=== PATIENT | female | born 1955 | race Caucasian/White ===

== ENCOUNTER → 2020-07-04 14:55 | Outpatient (CLI) | payer OTHER, SELFPAY ==
--- NOTE | ~2020-07-04 | US_ITS ---
EXAMINATION: US transvaginal DATE: 07/04/2020 15:20 INDICATION: Left vaginal wall cyst Comparison:No prior studies for comparison. TECHNIQUE: Multiple endovaginal sonographic images of the pelvis performed. FINDINGS: The uterus measures 8.6 x 3.4 x 5.4 cm. There is a myometrial mass measuring 2.3 cm anterio r aspect of the uterus, consistent with fibroid. There are nabothian cysts. The endometrial complex m easures 8 mm. The ovaries are not visualized. There is no free fluid in the pelvis. There are no abnormal masses seen on either side. IMPRESSION: 1. Uterine fibroid measuring 2.3 cm. Reviewed, dictated and finalized at location B.
== END ==
PROVIDERS: Visit Provider Nurse Practitioner
DX: N89.8 Other specified noninflammatory disorders of vagina (principal); D25.9 Leiomyoma of uterus, unspecified
CPT/HCPCS: 76830

== ENCOUNTER → 2020-08-06 10:54 | Outpatient (CLI) | payer OTHER, SELFPAY ==
--- NOTE | ~2020-08-06 | DEXA_ITS ---
Bone Density Report Name: Amparo Brock Age: 65 Sex: Female Ethnicity: White Date of : 1955 Indication: postmenopausal; screening for osteoporosis; cancer; Referring Provider: Nissa, Anastasiia Study: Bone densitometry was performed. Exam Date: August 06, 2020 Accession number: [id number] Bone Density: Region BMD T-score Z-score Classification AP Spine (L1-L4) 1.062 0.1 1.8 Normal Femoral Neck (Left) 0.776 -0.7 0.8 Normal Total Hip (Left) 0.836 -0.9 0.2 Normal Femoral Neck (Right) 0.928 0.7 2.1 Normal Total Hip (Right) 0.800 -1.2 -0.1 Osteopenia Total Hip Mean 0.818 -1.1 0.1 Osteopenia World Health Organization criteria for BMD impression classify patients as: Normal (T-score at or above -1.0), Osteopenia (T-score between -1.0 and -2.5), or Osteoporosis (T-score at or below -2.5). 10-year Fracture Risk(1): Major Osteoporotic Fracture 7.3% Hip Fracture 0.4% Reported Risk Factors: [place] (), Neck BMD=0.776, BMI=25.7 (1) FRAX(R) Version 3.08. Fracture probability calculated for an untreated patient. Fracture probability may be lower if the patient has received treatment. Clinical Information Provided by Patient: Has used the following medications: Vitamin D, tomoxifen Has the following medical conditions: Cancer Patient maximum height was 62.5 Menopause Age: 52 Does not regularly consume dairy products Drinks caffeinated beverages Onset of menses at age 14 Number of children 2 Impression: The patient has low bone mass, based on the Right Total Hip T-score. The patient has an estimated ten-year risk of hip fracture of 0.4% and an estimated ten-year risk of major fracture of 7.3%, based on the WHO FRAX algorithm. Discussion: BONE DENSITY IS LOW AT ONE OR MORE SKELETAL SITES. This patient's lowest T-score is low at one or more skeletal sites. It meets the World Health Organization's (WHO) criteria for ?low bone mass? (T-score between -1.0 and -2.5). The patient's 10-year risk of fracture as calculated by FRAX is less than the threshold where pharmacological therapy is recommended by the National Osteoporosis Foundation (NOF). However, all treatment decisions require clinical judgment and consideration of individual patient factors, including patient preferences, comorbidities, previous drug use, risk factors not captured in the FRAX model (e.g., frailty, falls, vitamin D deficiency, increased bone turnover, interval significant decline in bone density) and possible under or overestimation of fracture risk by FRAX. The patient should follow a healthful lifestyle (good nutrition with adequate calcium and vitamin D, and appropriate weight-bearing exercise). Follow-Up: Consider repeating this study in 2 to 3 years to reassess this patient's status, or sooner if there is some
== END ==
PROVIDERS: Visit Provider Nurse Practitioner
DX: Z13.820 Encounter for screening for osteoporosis (principal); Z78.0 Asymptomatic menopausal state; M85.851 Other specified disorders of bone density and structure, right thigh
CPT/HCPCS: 77080

== ENCOUNTER → 2022-11-02 13:33 | Outpatient (CLI) | payer MEDICARE, SELFPAY ==
--- NOTE | ~2022-11-02 | XR_ITS ---
EXAM: XR knee RT 3V DATE: 11/02/2022 13:51 HISTORY: M25.561 - Pain in right knee . COMPARISON: None available. FINDINGS: Normal mineralization. No fracture or dislocation. No lytic or blastic lesion. Mild medial joint space narrowing. Mild tricompartmental osteophytosis. Quadriceps enthesopathy. No erosion or p eriosteal change. Soft tissue swelling anterior to the patellar tendon. Small volume right knee joint effusion IMPRESSION: Mild tricompartmental right knee osteoarthritis. Anterior soft tissue swelling, correlate for clinical findings of hematoma, bursitis, or infection. Reviewed, dictated and finalized at location K. IMPRESSION: Mild tricompartmental right knee osteoarthritis. Anterior soft tiss ue swelling, correlate for clinical findings of hematoma, bursitis, or infectio n.
== END ==
PROVIDERS: PCP Internal Medicine; Visit Provider Internal Medicine
DX: M17.11 Unilateral primary osteoarthritis, right knee (principal)
CPT/HCPCS: 73562

== ENCOUNTER 2022-11-02 18:36 | Emergency (ER) | payer MEDICARE, SELFPAY ==
[2022-11-02 18:59] VITALS: BP 144/72; PULSE 75; RESP 16; TEMP 37; O2SAT 99
[2022-11-02 19:02] VITALS: BP 144/72; PULSE 75; RESP 16; TEMP 37; O2SAT 99
--- NOTE | 2022-11-02 19:44 | ED.GENADULT ---
HPI - General Adult General Chief complaint: Extremity Injury, Lower Stated complaint: Right Knee Pain Source: patient Mode of arrival: ambulatory Limitations: no limitations History of Present Illness HPI narrative: Patient presents for evaluation of right knee pain for the last 2 days. She cannot identify any precipitating injury. She was working on her hands and knees cleaning her pool prior to the time of symptom onset. She now reports redness to the anterior aspect of the right knee with some warmth. She has full range of motion denies any paresthesias. She rates her pain 8/10 severity. No radicular component. No fever, chills, nausea, vomiting. She is not diabetic. She does not smoke. She took 400 mg of ibuprofen without considerable improvement in her pain thereafter. No drainage from the affected area. She contacted her doctor who ordered an x-ray of her right knee earlier today. Related Data Home Medications Medication Instructions Recorded Confirmed carvedilol 3.125 mg tablet 3.125 mg PO DAILY 04/06/19 11/02/22 pantoprazole 20 mg tablet,delayed 20 mg PO QAM 04/06/19 11/02/22 release rosuvastatin 10 mg tablet 10 mg PO DAILY 04/06/19 11/02/22 Allergies Allergy/AdvReac Type Severity Reaction Status Date / Time Penicillins Allergy Mild rash Verified 11/02/22 19:01 Review of Systems Review of Systems: CONSTITUTIONAL: Denies fever, chills, or sweats. EYES: Denies visual changes, redness, or discharge. ENT: Denies rhinorrhea, congestion, sore throat, or otalgia. CARDIOVASCULAR: Denies chest pain, palpitations, or edema. RESPIRATORY: Denies cough or dyspnea. GASTROINTESTINAL: Denies abdominal pain, nausea, vomiting, or diarrhea. GENITOURINARY: Denies dysuria or hematuria. SKIN: reports redness and warmth to the right knee. MUSCULOSKELETAL: Reports right knee pain and swelling. Denies back pain NEUROLOGIC: Denies headache, numbness, dizziness, or weakness. PSYCHIATRIC: Denies anxiety or depression. [facility] Past Medical History Medical History Breast cancer Bursitis GERD (gastroesophageal reflux disease) Hyperlipidemia Hypertension Surgical History Surgical History History of lumpectomy Family History Family History Mother Hypertension Family history of elevated blood lipids Sibling Hypertension Social History Social History Smoking status: Never smoker Second hand tobacco smoke exposure: No Alcohol intake: never Lack of Transportation: No Lack of Food: Never True Current Housing: I Have Housing Concerned About Future Housing: No Difficulty Paying Gas/Electric Bills: No Difficulty Paying for Meds: No Currently Unemployed: YES Education: Associate Degree Difficulty w/ Childcare or Family Care: No Exam Narrative: GENERAL: WELL-APPEARING, WELL-NOURISHED, AND IN NO ACUTE DISTRESS. HEAD: NORMOCEPHALIC, ATRAUMATIC. EYES: PERRLA AND EOMI. ENT: NARES CLEAR, NO RHINORRHEA OR EPISTAXIS. MUCOUS MEMBRANES MOIST. OROPHARYNX WITHOUT TONSILLAR HYPERTROPHY EXUDATE OR OTHER LESIONS. BILATERAL TMS PEARLY ROSAS NONBULGING NECK: SUPPLE. NO ADENOPATHY OR MASSES. NO CAROTID BRUITS OR JVD CHEST: CLEAR TO AUSCULTATION. NO RESPIRATORY DISTRESS. NO WHEEZES RALES OR RHONCHI HEART: REGULAR RATE AND RHYTHM. NO MURMUR HEARD. NORMAL PERIPHERAL PULSES. ABDOMEN: SOFT, NONTENDER, NONDISTENDED, NORMAL ACTIVE BOWEL SOUNDS. EXTREMITIES: THERE IS SWELLING NOTED TO THE ANTERIOR ASPECT OF THE RIGHT KNEE. FULL RANGE OF MOTION OF THE RIGHT KNEE WITHOUT CREPITUS OR DEFORMITY. THERE IS TENDERNESS NOTED TO THE ANTERIOR ASPECT OF THE RIGHT KNEE. SKIN: THERE IS ERYTHEMA AND WARMTH TO THE ANTERIOR ASPECT OF THE RIGHT KNEE. NEURO: NO FOCAL DEFICITS. KRYSTAL
== END 2022-11-02 20:00 | disposition home or self-care (01) ==
PROVIDERS: Emergency Provider Nurse Practitioner; PCP Internal Medicine
DX: M71.562 Other bursitis, not elsewhere classified, left knee (principal); K21.9 Gastro-esophageal reflux disease without esophagitis; E78.5 Hyperlipidemia, unspecified
CPT/HCPCS: 99213; G0463

== ENCOUNTER 2024-01-17 02:59 | Day surgery (SDC) | payer MEDICARE, SELFPAY ==
[2024-01-05 13:38] VITALS: BMI 22.0
[2024-01-17] MEDS: LACTATED RINGERS 1,000 ML 150 ML IV CONT (08:36)
[2024-01-17 08:38] VITALS: BP 147/73; PULSE 74; RESP 18; TEMP 36.4; O2SAT 100
--- NOTE | 2024-01-17 09:25 | WPDANESEPPF ---
Anes - Initial Pre Proc Eval Procedure: Operation Date: 01/17/24 09:30 Proposed Procedures p Screening Colonoscopy - Manolo Curtis MD Date/Time: 01/17/24 09:25 Surgeon: Manolo Curtis MD Pre Op Diagnosis: neoplasm screening Patient Data Age: 68 Gender: F Height: 1.6 m Weight: 56.1 kg Last Vital Signs Temp 97.6 F 01/17/24 08:38 Pulse 74 01/17/24 08:38 Resp 18 01/17/24 08:38 BP 147/73 H 01/17/24 08:38 Pulse Ox 100 01/17/24 08:38 O2 Del Method Room Air 01/17/24 08:38 Allergies Allergy/AdvReac Type Severity Reaction Status Date / Time Penicillins Allergy Mild rash Verified 01/17/24 08:28 Home Medications Medication Instructions Recorded Confirmed Type carvedilol 3.125 mg tablet 3.125 mg PO DAILY 04/06/19 01/17/24 History pantoprazole 20 mg tablet,delayed 20 mg PO QAM 04/06/19 01/17/24 History release rosuvastatin 10 mg tablet 10 mg PO DAILY 04/06/19 01/17/24 History lisinopril 20 mg tablet 20 mg PO DAILY #90 tabs 08/10/22 01/17/24 Rx montelukast 10 mg tablet 10 mg PO DAILY #90 tabs 01/11/23 01/17/24 Rx Patient hx anesthesia problems: none Family hx anesthesia problems: none Results Review: All pre-operative results and documents have been reviewed as part of the pre-operative evaluation. [facility] Past Medical History Medical History (Updated 01/17/24 @ 09:26 by Marily Rodríguez CRNA) Breast cancer left breast lumpectomy with lymph node biopsy Bursitis GERD (gastroesophageal reflux disease) Hyperlipidemia Hypertension Surgical History Surgical History History of lumpectomy Family History Family History Mother Hypertension Family history of elevated blood lipids Sibling Hypertension Social History Social History Smoking status: Never smoker Second hand tobacco smoke exposure: No Alcohol intake: current Alcohol use details: once every few months per patient Substance use: never Lack of Transportation: No Lack of Food: Never True Current Housing: I Have Housing Concerned About Future Housing: No Difficulty Paying Gas/Electric Bills: No Difficulty Paying for Meds: No Currently Unemployed: YES Education: Associate Degree Difficulty w/ Childcare or Family Care: No Living arrangements: alone Spiritual care concerns: No Anes - Eval Final PreProcedure Day of Procedure 01/17/24 09:25 Patient weight: normal Heart: regular rate and rhythm Lungs: clear to auscultation Airway: Mallampati scale class II Neurological: alert and oriented Last oral intake: >/= 8 hours ASA classification: II Emergent: no Anesthetic plan: proceed Anesthesia type and monitoring: general GIVS Results Review: All pre-operative results and documents have been reviewed as part of the pre-operative evaluation. Informed Consent: The patient's anesthetic plan and its attendant risks and benefits were discussed with the patient/family/POA. Questions were solicited and answers provided to the satisfaction of the patient/family/POA.
--- NOTE | 2024-01-17 09:36 | PM.HPGS ---
History of Present Illness History of Present Illness Consent: Risks, benefits, and alternatives have been discussed and questions answered. Patient agrees to proceed with procedure. Chief complaint: neoplasm screening Narrative: Amparo Brock is a 68 year old female here for screening colonoscopy, last one 2013 Review of Systems Review of Systems: All systems reviewed & are unremarkable except as noted in HPI and below PMFSH Past Medical History Medical History (Updated 01/17/24 @ 09:37 by Manolo Curtis MD) Breast cancer left breast lumpectomy with lymph node biopsy Bursitis Colon cancer screening GERD (gastroesophageal reflux disease) Hyperlipidemia Hypertension Surgical History Surgical History History of lumpectomy Family History Family History Mother Hypertension Family history of elevated blood lipids Sibling Hypertension Social History Social History Smoking status: Never smoker Second hand tobacco smoke exposure: No Alcohol intake: current Alcohol use details: once every few months per patient Substance use: never Lack of Transportation: No Lack of Food: Never True Current Housing: I Have Housing Concerned About Future Housing: No Difficulty Paying Gas/Electric Bills: No Difficulty Paying for Meds: No Currently Unemployed: YES Education: Associate Degree Difficulty w/ Childcare or Family Care: No Living arrangements: alone Spiritual care concerns: No Meds Home Medications and Allergies Home Medications Medication Instructions Recorded Confirmed Type carvedilol 3.125 mg tablet 3.125 mg PO DAILY 04/06/19 01/17/24 History pantoprazole 20 mg tablet,delayed 20 mg PO QAM 04/06/19 01/17/24 History release rosuvastatin 10 mg tablet 10 mg PO DAILY 04/06/19 01/17/24 History lisinopril 20 mg tablet 20 mg PO DAILY #90 tabs 08/10/22 01/17/24 Rx montelukast 10 mg tablet 10 mg PO DAILY #90 tabs 01/11/23 01/17/24 Rx Allergies Allergy/AdvReac Type Severity Reaction Status Date / Time Penicillins Allergy Mild rash Verified 01/17/24 08:28 Vital Signs Vital Signs - 24 hr 01/17/24 08:38 Temperature 97.6 F Pulse Rate 74 Respiratory Rate 18 Blood Pressure 147/73 H Pulse Oximetry 100 Oxygen Delivery Room Air Exam Const: General: comfortable and no acute distress HENMT: Face/Nose/Sinus: Normal nares present Eyes: General: appearance normal, both eyes and all related structures Neck: Neck: no JVD Resp: Auscultation: clear to auscultation bilaterally Cardio: Rate: regular rate Rhythm: regular rhythm GI: Inspection: non-distended GI Palp: Yes Soft to palpation Skin: General skin exam: normal color Neuro: General: gait normal Speech: normal speech Extrem: General: normal to inspection Psych: Mental Status: mental status grossly normal Assessment and Plan Assessment and plan (1) Colon cancer screening: Code(s): Z12.11 - Encounter for screening for malignant neoplasm of colon Status: Acute Assessment and Plan: colonoscopy
[2024-01-17 09:58] VITALS: BP 99/48; PULSE 74; RESP 18; O2SAT 100
[2024-01-17 10:08] VITALS: BP 116/74; PULSE 73; RESP 20; O2SAT 100
[2024-01-17 10:18] VITALS: BP 127/96; PULSE 76; RESP 20; O2SAT 100
== END 2024-01-17 10:30 | disposition home or self-care (01) ==
PROVIDERS: PCP Internal Medicine; Referring Provider Nurse Practitioner; Visit Provider Internal Medicine Gastroenterology
PROC: 0DJD8ZZ Inspection of Lower Intestinal Tract, Via Natural or Artificial Opening Endoscopic (ICD-10-PCS; CPT 45378; principal; 2024-01-17 09:30)
DX: Z12.11 Encounter for screening for malignant neoplasm of colon (principal); D12.3 Benign neoplasm of transverse colon; K57.30 Diverticulosis of large intestine without perforation or abscess without bleeding; K64.8 Other hemorrhoids; I10 Essential (primary) hypertension; E78.5 Hyperlipidemia, unspecified; K21.9 Gastro-esophageal reflux disease without esophagitis; Z85.3 Personal history of malignant neoplasm of breast
CPT/HCPCS: 45385; 88305; J2003; J2704; J7120

== ENCOUNTER 2024-07-03 13:53 | Outpatient (CLI) | payer MEDICARE, SELFPAY ==
--- NOTE | ~2024-07-03 | XR_ITS ---
PA, oblique, and lateral views of the right fourth finger CLINICAL HISTORY: Sprain FINDINGS: No acute fracture or dislocation seen. Joint spaces are intact. Soft tissues are unremarkab le. IMPRESSION: No significant abnormality seen. Reviewed, dictated and finalized at location .
--- OUTSIDE RECORDS SUMMARY | 2024-07-03 15:13 | XMS_ITS | Encounter Summary ---
Author Organization [facility] Address 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 Gender Identity Not on file Sexual Orientation Not on file documented as of this encounter Plan of Treatment Upcoming Encounters Date Type Department Care Team (Late st Contact Info) Description 07/17/2024 7:30 AM CDT Appointment [facility] [place] [address] [place] [address] Nola Delgado MD [address] [place] [address] 11/08/2024 10:30 AM CDT Office Visit [facility] Oncology and Hematology [facility] [address] [place] [address] Nola Delgado MD [address] [place] [address] documented as of this encounter Visit Diagnoses Diagnosis Other screening mammogram- Primary documented in this encounter Care Teams Nitrating Acid Mixer Relationship Specialty Start Date End Date Tal Mock DO [address] [facility] [address] [place] [address] PCP - General Internal Medicine 10/11/11 documented as of this encounter
--- OUTSIDE RECORDS SUMMARY | 2024-07-03 15:13 | XMS_ITS | Encounter Summary ---
Author Organization [facility] Address 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 Oncology and Hematology [facility] [address] [place] [address] Nola Delgado MD [address] [place] [address] documented as of this encounter Procedures Procedure Name Priority Date/Time Associated Diagnosis Comments MAMMO SCREEN BILAT W OR WO CAD Routine 05/21/2008 3:51 PM CDT documented in this encounter Results * MAMMO DIGITAL SCREEN BILAT (05/21/2008 3:51 PM CDT) Anatomical Region Laterality Modality Breast Bilateral Other 05/21/2008 3:51 PM CDT Narrative 05/22/2008 11:27 AM CDT [facility] [address] [place], [place] [address] Admit Date: 05/21/2008 ALEXANDRU MALHOTRA Sex: F Admit Prov: MICHELE BALDERAS Alexandre Date: 1955 Primary Care Prov: PCP, NONE CMRN: [id number] [id number] IM[facility] Ordering Prov: MICHELE BALDERAS Accession Number: [id number] Interpretation BILATERAL FULL FIELD DIGITAL SCREENING MAMMOGRAM WITH CAD. Date: 05/21/2008 History: Routine Screening. Technique: Full field digital craniocaudal and mediolateral oblique projections of both breasts were obtained. Computer aided detection was performed. Comparison: February 2006 and April 2003. Breast Parenchymal Composition: Heterogeneously dense, which lowers the sensitivity of mammography. Findings: No suspicious mass, suspicious microcalcifications, or architectural distortion in either breast is identified. Since the prior study, there has been no significant interval change. The computer aided detection system detects no significant abnormality. Overall Assessment: BI-RADS category 1: Negative. Recommendation: Annual mammography is recommended. Assessment BIRADS: 1-Negative Recommendation: Normal interval follow-up Dictated by: LYNDA CONNELL Electronically signed by: LYNDA CONNELL 05/22/2008 11:26 Transcribed: 05/22/2008 09:15 SDJ Procedure Note Lynda Connell - 05/22/2008 [facility] [address] [place], [place] [address] Admit Date: 05/21/2008 BLADECASE WALKERGIGI Ordonez Sex: F Admit Prov: MICHELE BALDERAS Date: 1955 Primary Care Prov: PCP, NONE CMRN: [id number] Room: [facility] SSN: [address] [place] [address] IMAGING SERVICES Ordering Prov: MICHELE BALDERAS Interpretation BILATERAL FULL FIELD DIGITAL SCREENING MAMMOGRAM WITH CAD. Date: 05/21/2008 History: Routine Screening. Technique: Full field digital craniocaudal and mediolateral oblique projections of both breasts were obtained. Computer aided detectionwas performed. Comparison: February 2006 and April 2003. Breast Parenchymal Composition: Heterogeneously dense, which lowersthe sensitivity of mammography. Findings: No suspicious mass, suspicious microcalcifications, or architectural distortion in either breast is identified. Since theprior study, there has been no significant interval change. The computeraided detection system detects no significant abnormality. Overall Assessment: BI-RADS category 1: Negative. Recommendation: Annual mammography is recommended. Assessment BIRADS: 1-Negative Recommendation: Normal interval follow-up Dictated by: LYNDA CONNELL Electronically signed by: LYNDA CONNELL 05/22/2008 11:26 Transcribed: 05/22/2008 09:15 SDJ Michele Balderas MD MAMMO ORDERABLES Final Result documented in this encounter Visit Diagnoses Diagnosis Other screening mammogram documented in this encounter Care Teams Dispatcher Service Relationship Specialty Start Date End Date Tal Mock DO [address] [address] PCP - General Internal Medicine 10/11/11 documented as of this encounter
--- OUTSIDE RECORDS SUMMARY | 2024-07-03 15:13 | XMS_ITS | Encounter Summary ---
Author Organization [facility] Address [address] [place] [address] Care Team Providers Care Personal Care Home Administrator Name Role Phone Tal Mock DO Primary Care Provider [phone] Encounter Details Date Type Department Care Team (Latest Contact Info) Description 04/17/2003 Outpatient Historical [facility] Jonathon Landry MD [address] [place] [address] SCREENING MAMM-MAILG NEOPL-OTHER (Primary Dx) Social History Tobacco Use Types Packs/Day Years Used Date Smoking Tobacco: Never Assessed Comments Unknown Sex and Gender Information Value Date Recorded Sex Assigned at Not on file 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 Gender Identity Not on file Sexual Orientation Not on file documented as of this encounter Plan of Treatment Upcoming Encounters Date Type Department Care Team (Late st Contact Info) Description 07/17/2024 7:30 AM CDT Appointment [facility] Medical [place] A [address] [place] [address] Nola Delgado MD [address] [place] [address] 11/08/2024 10:30 AM CDT Office Visit [facility] Oncology and Hematology [facility] [address] [place] [address] Nola Delgado MD [address] [place] [address] documented as of this encounter Visit Diagnoses Diagnosis Other screening mammogram- Primary documented in this encounter Care Teams Personal Care Home Administrator Relationship Specialty Start Date End Date Tal Mock DO [address] [facility] [address] [place] [address] PCP - General Internal Medicine 10/11/11 documented as of this encounter
--- OUTSIDE RECORDS SUMMARY | 2024-07-03 15:13 | XMS_ITS | Clinical Summary ---
Author Organization [facility] Address [address] [place] [address] Phone Care Team Providers Care String Cutter Name Role Phone Tal Mock DO Primary Care Provider [phone] Allergies Active Allergy Reactions Criticality Noted Date Comments Penicillins Rash Low 10/11/2011 Medications lisinopril (PRINIVIL) 20 mg tablet Take 20 mg by mouth daily. Active carvedilol (COREG) 3.125 mg tablet Take 3.125 mg by mouth daily. Active pantoprazole (PROTONIX) 20 mg Tablet, Delayed Release (E.C.) Take 20 mg by mouth daily. Active spironolactone (ALDACTONE) 25 mg tablet Take 25 mg by mouth daily. Active ergocalciferol (VITAMIN D2) 50,000 unit capsule TAKE 1 CAPSULE BY MOUTH EVERY 7 DAYS 12 Capsule 3 05/13/2020 Active montelukast (SINGULAIR) 4 mg Tablet, Chewable Take 4 mg by mouth daily at bedtime. Active Active Problems Problem Noted Date Diagnosed Date Hot flashes due to tamoxifen 02/11/2014 Malignant neoplasm of lower-outer quadrant of fe male breast 10/11/2013 Breast cancer 10/25/2011 Encounters Date Type Department Care Team Description 06/19/2024 External Device Data STL ABSTRACTION Provider, Abstract 05/08/2024 10:15 AM BUILDING CONSTRUCTION SUPERINTENDENT Office Visit [facility] Oncology and Hematology [facility] [address] [place] [address] Nola Delgado MD Malignant neoplasm of lower-outer quadrant of female breast, unspecified estrogen receptor status, unspecified laterality (CMS/HCC) (Primary Dx); Vitamin D deficiency; Disorder of breast, unspecified 05/08/2024 9:21 AM BUILDING CONSTRUCTION SUPERINTENDENT - 05/08/2024 11:59 PM BUILDING CONSTRUCTION SUPERINTENDENT Hospital Encounter [facility] Laboratory Services [facility] [address] [place] [address] Nola Delgado MD Discharge Disposition: Home or Self Care 05/08/2024 External Device Data STL ABSTRACTION Provider, Abstract 04/25/2024 External Device Data STL ABSTRACTION Provider, Abstract 04/24/2024 External Device Data STL ABSTRACTION Provider, Abstract from Last 3 Months Family History Medical History Relation Name Comments Hypertension Brother No Known Problems Daughter Heart Disease Father No Known Problems Maternal Grandmother Hypertension Mother No Known Problems Other No Known Problems Sister Breast Cancer Neg Hx Cancer Neg Hx Ovarian Cancer Neg Hx Relation Name Status Comments Brother Alive Daughter Father Alive Maternal Grandmother Mother Alive Other Sister Social History Tobacco Use Types Packs/Day Years Used Date Smoking Tobacco: Never Tobacco Cessation:Counseling Given: Not Answered Alcohol Use Standard Drinks/Week Comments No 0 (1 standard drink = 0.6 oz pur e alcohol) Comments No Sex and Gender Information Value Date Recorded Sex Assigned at Not on file Legal Sex Female 3:03 AM BUILDING CONSTRUCTION SUPERINTENDENT Gender Identity Not on file Sexual Orientation Not on file Occupation Industry Job Start Date Job End Date Not on file Not on file Not on file Not on file Last Filed Vital Signs Vital Sign Reading Time Taken Comments Blood Pressure 114/68 05/08/2024 9:48 AM BUILDING CONSTRUCTION SUPERINTENDENT Pulse 66 05/08/2024 9:48 AM BUILDING CONSTRUCTION SUPERINTENDENT Temperature 36.3 C (97.3 F) 05/08/2024 9:48 AM BUILDING CONSTRUCTION SUPERINTENDENT Respiratory Rate 18 05/08/2024 9:48 AM BUILDING CONSTRUCTION SUPERINTENDENT Oxygen Saturation 98% 05/08/2024 9:48 AM BUILDING CONSTRUCTION SUPERINTENDENT Inhaled Oxygen Concentration - - Weight 57.2 kg (126 lb 3.2 oz) 05/08/2024 9:48 A M BUILDING CONSTRUCTION SUPERINTENDENT Height 160 cm (5' 3 ) 05/08/2024 9:48 AM BUILDING CONSTRUCTION SUPERINTENDENT Body Mass Index 22.36 05/08/2024 9:48 AM BUILDING CONSTRUCTION SUPERINTENDENT Plan of Treatment Upcoming Encounters Date Type Department Care Team (Late Contact Info) Description 07/17/2024 7:30 AM CDT Appointment [facility] [place] [facility] [address] [place] [address] Nola Delgado MD [address] [place] [address] 11/08/2024 10:30 AM CDT Office Visit [facility] Oncology and Hematology [facility] [address] [place] [address] Nola Delgado MD [address] [place] [address] Health Maintenance Due Date Last Done Comments DTAP/TDAP/TD VACCINES (1 - Tdap) 1976 PNEUMOCOCCAL VACCINE 50+ YEA RS (1 of 2 - PCV) 1976 ZOSTER VACCINE (1 of 2) 1976 COLORECTAL SCREENING 2002 Colorectal Cancer Screening 2002 FIT-DNA Q 3 years 2002 FIT/FOBT Q 1 year 2002 Flex Sig/CT Colonography Q 5 years 2002 RSV VACCINE (60+ or ) (1 - Risk 60-74 years 1-dose series) 2017 INFLUENZA VACCINE (#1) 2023 BREAST CANCER SCREENING 06/29/2024 06/30/19 24, 11/02/2021, 10/28/2020, Additional history exists OSTEOPOROSIS SCREENING 11/08/2028 , 02/19/2014, 02/10/2012 Medical Devices Implanted Type Area Ebay Reseller Device Identifier Shelf Expiration Date Model / Serial / Lot Sealant Floseal 10ml [id number] - [id number] Implanted:Qty : 1 on 11/01/2011 by Dorothy Haro MD at [facility] Biological Left: Breast BLAIR- BIOSCIENCE 03/02/2013 [id number] / / [id number] Procedures Procedure Name Priority Date/Time Associated Diagnosis Comments COMPREHENSIVE METABOLIC PANEL Stat 05/08/2024 9:34 AM BUILDING CONSTRUCTION SUPERINTENDENT Malignant neoplasm of lower-outer quadrant of female breast, unspecified estrogen receptor status, unspecified laterality (CMS/HCC) Vitamin D deficiency CBC WITH DIFFERENTIAL Stat 05/08/2024 9:34 AM BUILDING CONSTRUCTION SUPERINTENDENT Malignant neoplasm of lower-outer quadrant of female breast, unspecified estrogen receptor status, unspecified laterality (CMS/HCC) Vitamin D deficiency CANCER ANTIGEN 15-3 Stat 05/08/2024 9 :34 AM BUILDING CONSTRUCTION SUPERINTENDENT Malignant neoplasm of lower-outer quadrant of female breast, unspecified estrogen receptor status, unspecified laterality (CMS/HCC) Vitamin D deficiency VITAMIN D 25 HYDROXY Routine 05/08/2024 9:34 AM BUILDING CONSTRUCTION SUPERINTENDENT Malignant neoplasm of lower-outer quadrant of female breast, unspecified estrogen receptor status, unspecified laterality (CMS/HCC) Vitamin D deficiency XR DEXA BONE DENSITY AXIAL 1 OR MORE SITES Routine 11/09/2023 9:42 AM CDT Malignant neoplasm of lower-outer quadrant of female breast, unspecified estrogen receptor status, unspecified laterality (CMS/HCC) Vitamin D deficiency Asymptomatic postprocedural ovarian failure MAMMO 3D CATHLEEN DIAGNOSTIC BILAT W OR WO CAD Routine 06/30/2023 11:00 AM CDT Malignant neoplasm of lower-outer quadrant of female breast, unspecified estrogen receptor status, unspecified laterality (CMS/HCC) Vitamin D deficiency Encounter for follow-up examination after completed treatment for malignant neoplasm from Last 3 Months or Most Recently Relevant to Health Maintenance Results * CANCER ANTIGEN 15-3 (05/08/2024 9:34 AM BUILDING CONSTRUCTION SUPERINTENDENT) CA 15-3 13 <32 U/mL [facility] Comment: This test was performed using the Siemens (unbound technologies) chemiluminescent method. Values obtained from different assay methods cannot be used interchangeably. CA 15-3 levels, regardless of value, should not be interpreted as absolute evidence of the presence or absence of disease. Test Performed at: [facility] [address] [place] [address] Lexi Britt MD Blood 05/08/2024 9:34 AM BUILDING CONSTRUCTION SUPERINTENDENT 05/08/2024 9:54 AM BUILDING CONSTRUCTION SUPERINTENDENT Nola Delgado MD CHEMISTRY ORDERABLES Final Resu lt [facility] [phone] [facility] [id number] [place] [phone] * CBC WITH DIFFERENTIAL (05/08/2024 9:34 AM BUILDING CONSTRUCTION SUPERINTENDENT) Pathologist [facility] WBC 6.3 4.0 - 9.8 K/uL 05/08/2024 9:54 AM BUILDING CONSTRUCTION SUPERINTENDENT [employer] [facility] - . [facility] RBC 4.45 3.90 - 4.90 M/uL 05/08/2024 9:54 AM BUILDING CONSTRUCTION SUPERINTENDENT [employer] LABORATORY SERVICES - . [facility] HEMOGLOBIN 13.6 11.8 - 14.8 g/dL 05/08/2024 9:54 AM BUILDING CONSTRUCTION SUPERINTENDENT [employer] [facility] - . [facility] HEMATOCRIT 40.7 35.5 - 44.0 % 05/08/2024 9:54 AM BUILDING CONSTRUCTION SUPERINTENDENT [employer] LABORATORY SERVICES - . [facility] MCV 91.5 82.0 - 99.0 fL 05/08/2024 9:54 AM BUILDING CONSTRUCTION SUPERINTENDENT [employer] LABORATORY SERVICES - [facility] MCH 30.6 27.2 - 32.6 pg 05/08/2024 9:54 AM BUILDING CONSTRUCTION SUPERINTENDENT [employer] LABORATORY SERVICES - . [facility] MCHC 33.4 31.5 - 35.5 g/dL 05/08/2024 9:54 AM BUILDING CONSTRUCTION SUPERINTENDENT [employer] LABORATORY [facility] - . [facility] RDW 13.2 11.5 - 14.5 % 05/08/2024 9:54 AM BUILDING CONSTRUCTION SUPERINTENDENT [employer] LABORATORY SERVICES - . [facility] RDW-STDEV 44.8 37.1 - 48.7 fL 05/08/2024 9:54 AM BUILDING CONSTRUCTION SUPERINTENDENT [employer] LABORATORY SERVICES - . [facility] PLATELETS 306 140 - 350 K/uL 05/08/2024 9:54 AM BUILDING CONSTRUCTION SUPERINTENDENT [employer] LABORATORY SERVICES - . [facility] MPV 9.5 9.3 - 12.4 fL 05/08/2024 9:54 AM BUILDING CONSTRUCTION SUPERINTENDENT [employer] LABORATORY SERVICES - . [facility] NEUTROPHILS 59 % 05/08/2024 9:54 AM BUILDING CONSTRUCTION SUPERINTENDENT [employer] [facility]ATORY [facility] LYMPHOCYTES 24 % 05/08/2024 9:54 AM [facility] [employer] LABORATORY SERVICES - [facility] MONOCYTES 12 % 05/08/2024 9:54 AM [facility]ORATORY SERVICES [facility] EOSINOPHILS 3 % 05/08/2024 9:54 AM [facility]ATORY SERVICES - [facility] BASOPHILS 1 % 05/08/2024 9:54 AM [facility] LABORATORY [facility] IMMATURE GRANULOCYTES 0 % 05/08/2024 9:54 AM [facility] LABORATORY [facility] NEUTROPHIL ABSOLUTE 3.71 1.90 - 7.00 K/uL 05/08/2024 9:54 AM [facility] [employer] LABORATORY SERVICES - [facility] LYMPHOCYTE ABSOLUTE 1.52 0.70 - 4.50 K/uL 05/08/2024 9:54 AM [facility] LABORATORY [facility] MONOCYTE ABSOLUTE 0.78 0.10 - 1.30 K/uL 05/08/2024 9:54 AM [facility] [employer] LABORATORY [facility] EOSINOPHIL ABSOLUTE 0.20 0.00 - 0.70 K/uL 05/08/2024 9:54 AM [facility] [employer] LABORATORY SERVICES - [facility] BASOPHILS ABSOLUTE 0.04 0.00 - 0.20 K/uL 05/08/2024 9:54 AM [facility] [employer] LABORATORY [facility] IMMATURE GRANULOCYTES ABSOLUTE 0.02 0.00 - 0.03 K/uL 05/08/2024 9:54 AM [facility] [employer] [facility] Blood Venipuncture / Unknown 05/08/2024 9:34 AM BUILDING CONSTRUCTION SUPERINTENDENT 05/08/2024 9:49 AM BUILDING CONSTRUCTION SUPERINTENDENT Nola Delgado MD HEMATOLOGY ORDERABLES Final Res ult [facility] [employer] SERVICES - [facility] CLIA# [id number] [address] [address] * VITAMIN D 25 HYDROXY (05/08/2024 9:34 AM BUILDING CONSTRUCTION SUPERINTENDENT) Pathologist [facility] VITAMIN D, 25 OH, TOTAL 75 30 - 100 ng/mL [facility] Comment: Vitamin D Status 25-OH Vitamin D: Deficiency: <20 ng/mL Insufficiency: 20 - 29 ng/mL Optimal: > or = 30 ng/mL For 25-OH Vitamin D testing on patients on D2-supplementation and patients for whom quantitation of D2 and D3 fractions is required, the [facility]TM) 25-OH VIT D, (D2,D3), LC/MS/MS is recommended: order code 03227 (patients >2yrs). See Note 1 Note 1 For additional information, please refer to http://education.MOBi-LEARN/faq/QMF104 (This link is being provided for informational/ educational purposes only.) Test Performed at: [facility] [address] [place] [address] Lexi Britt MD Blood 05/08/2024 9:34 AM BUILDING CONSTRUCTION SUPERINTENDENT 05/08/2024 9:54 AM BUILDING CONSTRUCTION SUPERINTENDENT Nola Delgado MD CHEMISTRY ORDERABLES Final Resu lt [facility] [phone] [facility] [address] [place] [address] * (ABNORMAL) COMPREHENSIVE METABOLIC PANEL (05/08/2024 9:34 AM BUILDING CONSTRUCTION SUPERINTENDENT) SODIUM 141 136 - 145 mmol/L 05/08/2024 10:27 AM [employer] [facility] POTASSIUM 4.6 3.5 - 5.0 mmol/L 05/08/2024 10:27 AM [employer] [facility] Comment:Moderate hemolysis p resent. Can cause significant falsely elevated result. Redraw if indicated. CHLORIDE 102 98 - 107 mmol/L 05/08/2024 10:27 AM [employer] [facility] CO2 28 22 - 29 mmol/L 05/08/2024 10:27 AM [employer] [facility] CALCIUM 10.5(H) 8.6 - 10.2 mg/dL 05/08/2024 10:27 AM [employer] [facility] BUN 26(H) 8 - 23 mg/dL 05/08/2024 10:27 AM [employer] [facility] CREATININE 0.84 0.51 - 0.95 mg/dL 05/08/2024 10:27 AM [facility] [employer] [facility] GLUCOSE 81 74 - 99 mg/dL 05/08/2024 10:27 AM [facility] LABORATORY [facility] TOTAL PROTEIN 7.1 6.7 - 8.6 g/dL 05/08/2024 10:27 AM [facility] [employer] [facility] ALBUMIN 4.3 3.5 - 5.2 g/dL 05/08/2024 10:27 AM [facility] [employer] [facility] BILIRUBIN TOTAL 0.3 0.2 - 1.1 mg/dL 05/08/2024 10:27 AM [facility] [employer] [facility] ALKALINE PHOSPHATASE 72 35 - 104 U/L 05/08/2024 10:27 AM [facility] [employer] [facility] AST 05/08/2024 10:27 AM [facility] Comment:Test cannot be perfo rmed. Sample hemolysis interference above limits. Redraw if indicated. ALT 20 <34 U/L 05/08/2024 10:27 AM [facility] [employer] [facility] Comment:Hemolysis present. R esult may be falsely elevated. GFR >60 >=60 mL/min/1. 73 sq meter 05/08/2024 10:27 AM [facility] [employer] [facility] Comment:eGFR calculated with 2020 CKD-EPI equation. Vegetarian diet, extremely high or low muscle mass, and may affect results. Cystatin C with Glomerular Filtration Rate is a suitable alternative for these patients. ANION GAP 11 8 - 16 mmol/L 05/08/2024 10:27 AM [facility] [employer] [facility] Blood Venipuncture / Unknown 05/08/2024 9:34 AM [facility] 05/08/2024 9:41 AM [facility] [employer] [facility] - 05/08/2024 10:27 AM [facility] Samples containing indocyanine green cause interferences on Total and/or Direct Bilirubin and must not be measured. Nola Delgado MD CHEMISTRY ORDERABLES Final Resu lt [facility] LABORATORY SERVICES [facility] VICKI# [id number] [address] [place] [place] [address] * XR DEXA BONE DENSITY AXIAL 1 OR MORE SITES (11/09/2023 9:42 AM CDT) Anatomical Region Laterality Modality Digital Radiogra phy 11/09/2023 9:43 AM CDT Impressions 11/09/2023 9:53 AM CDT IMPRESSION: Osteopenia. Lumbar Spine: T-score: -0.9 Left Femoral Neck: T-score: -0.5 Left Total Femur: T-score: -0.9 Right Femoral Neck: T-score: 0.0 Right Total Femur: T-score: -1.2 Left 33% Radius: T-Score: -1.2 Statistical CHANGE: Significant decrease of 10.9 % in Lumbar spine BMD since 2014. FRAX FRACTURE RISK ASSESSMENT: (Only valid Between 40-89 Years Of Age) Risk factors: None. 10-Year probability of fracture Major osteoporotic fracture: 7 % Defined as fracture of the spine, hip or shoulder. Hip fracture: 0.4 % Comparison population: [place], Race: White This is a summary page. Please refer to the complete detailed report found in: Imaging Section of the [facility] EMR. Definitions: Normal: T-score above -1.0 Osteopenia T-score less than -1.0 and above -2.5 Osteoporosis: T-score <= -2.5 Note: Clinical Osteoporosis may be based on other factors besides DXA calculated BMD. OTher factors include and are not limited to fragility fractures, subclinical compression fractures,osteopenia and elevated FRAX Scores. A major osteoporotic fracture is defined as a fracture of the spine, forearm, hip or shoulder. Follow-up Recommendations: Patients without high risk factors for osteoporosis T-score -1.0 to -1.5 - Consider repeat BMD in 5-10 years T-score -1.5 to - 2.0 - Consider repeat BMD in 3-5 years T-score -2.0 to - 2.5 - Consider repeat BMD every 2 years Patients on treatment for osteoporosis 1-2 years after initiation of treatment and every 2 years [address] Lee Combs MD DICTATION LOCATION: 11/09/2023 9:53 AM CDT EXAMINATION: BONE DENSITY STUDY (DXA) DATE: 11/09/2023 9:42 AM HISTORY: 68 years Female. Postmenopausal. Osteopenia. PROCEDURE: Planar images of the lumbar spine, hip(s) and forearm(s). LUNAR DEXA scanner for bone mineral density determination (BMD). Prior bone density: 02/19/2014 FINDINGS: Lumbar Spine (L1-L2): T-score: -0.9 1.059 g/sq cm Prior: 1.189 g/sq cm Left Femoral Neck: T-score: -0.5 0.974 g/sq cm Prior: 1.038 g/sq cm Left Total Femur: T-score: -0.9 Right Femoral Neck: T-score: 0.0 1.032 g/sq cm Prior: 1.022 g/sq cm Right Total Femur: T-score: -1.2 Left 33% Radius: T-Score: -1.2 0.772 g/sq cm Prior: 0.780 g/sq cm TECHNICAL ISSUES: L3-L4 excluded because of degenerative changes. Procedure Note Lee Combs MD - 11/09/2023 EXAMINATION: BONE DENSITY STUDY (DXA) DATE: 11/09/2023 9:42 AM HISTORY: 68 years Female. Postmenopausal. Osteopenia. PROCEDURE: Planar images of the lumbar spine, hip(s) and forearm(s). LUNAR DEXA scanner for bone mineral density determination (BMD). Prior bone density: 02/19/2014 FINDINGS: Lumbar Spine (L1-L2): T-score: -0.9 1.059 g/sq cm Prior: 1.189 g/sq cm Left Femoral Neck: T-score: -0.5 0.974 g/sq cm Prior: 1.038 g/sq cm Left Total Femur: T-score: -0.9 Right Femoral Neck: T-score: 0.0 1.032 g/sq cm Prior: 1.022 g/sq cm Right Total Femur: T-score: -1.2 Left 33% Radius: T-Score: -1.2 0.772 g/sq cm Prior: 0.780 g/sq cm TECHNICAL ISSUES: L3-L4 excluded because of degenerative changes. IMPRESSION: Osteopenia. Lumbar Spine: T-score: -0.9 Left Femoral Neck: T-score: -0.5 Left Total Femur: T-score: -0.9 Right Femoral Neck: T-score: 0.0 Right Total Femur: T-score: -1.2 Left 33% Radius: T-Score: -1.2 Statistical CHANGE: Significant decrease of 10.9 % in Lumbar spine BMD since 2014. FRAX FRACTURE RISK ASSESSMENT: (Only valid Between 40-89 Years Of Age) Risk factors: None. 10-Year probability of fracture Major osteoporotic fracture: 7 % Defined as fracture of the spine, hip or shoulder. Hip fracture: 0.4 % Comparison population: [place], Race: White This is a summary page. Please refer to the complete detailed report found in: Imaging Section of the [facility] EMR. Definitions: Normal: T-score above -1.0 Osteopenia T-score less than -1.0 and above -2.5 Osteoporosis: T-score <= -2.5 Note: Clinical Osteoporosis may be based on other factors besides DXA calculated BMD. OTher factors include and are not limited to fragility fractures, subclinical compression fractures,osteopenia and elevated FRAX Scores. A major osteoporotic fracture is defined as a fracture of the spine, forearm, hip or shoulder. Follow-up Recommendations: Patients without high risk factors for osteoporosis T-score -1.0 to -1.5 - Consider repeat BMD in 5-10 years T-score -1.5 to - 2.0 - Consider repeat BMD in 3-5 years T-score -2.0 to - 2.5 - Consider repeat BMD every 2 years Patients on treatment for osteoporosis 1-2 years after initiation of treatment and every 2 years thereafter D[address] by Dr. Lee Combs MD DICTATION LOCATION: 1 Nola Delgaod MD DIAGNOSTIC IMAGING ORDERABLES F inal Result * MAMMO 3D CATHLEEN DIAGNOSTIC BILAT W OR WO CAD (06/30/2023 11:00 AM CDT) Anatomical Region Laterality Modality Breast Bilateral Mammography 06/30/2023 9:50 AM CDT Impressions 06/30/2023 10:45 AM CDT IMPRESSION: No evidence of malignancy. RECOMMENDATIONS: Bilateral annual screening mammogram. BI-RADS Category 2. Benign findings. DICTATION LOCATION: Location - [facility] Narrative 06/30/2023 10:45 AM CDT MAMMOGRAPHY DIGITAL DIAGNOSTIC BILATERAL 3-D TOMOGRAPHY WITH OR WITHOUT CAD, 06/30/2023. HISTORY: Left breast cancer and left lumpectomy. Annual checkup. TECHNIQUE: Low-dose full-field digital tomosynthesis of bilateral breasts was performed with 2-D and 3-D acquisition. Computer aided diagnosis was also applied. Breast composition: There are scattered fibroglandular tissues bilaterally. COMPARISON: 11/02/2021 and 10/28/2020. FINDINGS: The postsurgical changes in the left breast are visualized. No new mass, malignant calcification or architectural distortion is seen bilaterally. CAD was used. Procedure Note Asmita Andrew MD - 06/30/2023 MAMMOGRAPHY DIGITAL DIAGNOSTIC BILATERAL 3-D TOMOGRAPHY WITH OR WITHOUT CAD, 06/30/2023. HISTORY: Left breast cancer and left lumpectomy. Annual checkup. TECHNIQUE: Low-dose full-field digital tomosynthesis of bilateral breasts was performed with 2-D and 3-D acquisition. Computer aided diagnosis was also applied. Breast composition: There are scattered fibroglandular tissues bilaterally. COMPARISON: 11/02/2021 and 10/28/2020. FINDINGS: The postsurgical changes in the left breast are visualized. No new mass, malignant calcification or architectural distortion is seen bilaterally. CAD was used. IMPRESSION: No evidence of malignancy. RECOMMENDATIONS: Bilateral annual screening mammogram. BI-RADS Category 2. Benign findings. DICTATION LOCATION: Location - [facility] Nola Delgado MD MAMMO ORDERABLES Final Result from Last 3 Months or Most Recently Relevant to Health Maintenance Insurance [facility] [id number] Advance Directives For more information, please contact: [phone] * Full Code (Latest Code Status on File) Date Activated Date Inactivated Comments 11/01/2011 6:11 PM 11/01/2011 10:44 PM * Full Code Date Activated Date Inactivated Comments 11/01/2011 11:43 AM 11/01/2011 6:11 PM * Full Code Date Activated Date Inactivated Comments 11/01/2011 9:33 AM 11/01/2011 11:43 AM Care Teams String Cutter Relationship Specialty Start Date End Date Tal Mock DO [address] [phone] PCP - General Internal Medicine 10/11/11
== END 2024-07-03 13:54 | disposition home or self-care (01) ==
LOC: ANHIMG 13:56
PROVIDERS: PCP Internal Medicine; Visit Provider Plastic Surgery
DX: S63.614A Unspecified sprain of right ring finger, initial encounter (principal); X58.XXXA Exposure to other specified factors, initial encounter
CPT/HCPCS: 73140